=== PATIENT | female | born 1950 | race Two or more races ===

== ENCOUNTER 2022-01-23 23:11 | Emergency (ER) | payer OTHER ==
[~2022-01-23] VITALS: Ht 170.2 cm; Wt 127.0 kg
[2022-01-24 03:23] VITALS: BP 132/85
[2022-01-24] MEDS ORDERED: CEPH-509 PO (08:22)
[2022-01-24] MEDS ORDERED: cefTRIAXone SOD 1,000 MG VL IM ONE (08:30)
[2022-01-24] MEDS ORDERED: LIDOCAINE 1%HCL (LOCAL ANESTH) 10 ML MDV ONE (08:32)
== END 2022-01-24 10:37 | disposition home or self-care (01) ==
LOC: ER 23:11 → EDBD 23:11 → ER 01-24 10:37
DX: S90.01XA Contusion of right ankle, initial encounter (principal); S90.31XA Contusion of right foot, initial encounter; L03.115 Cellulitis of right lower limb; Z89.512 Acquired absence of left leg below knee; Z88.1 Allergy status to other antibiotic agents; W05.0XXA Fall from non-moving wheelchair, initial encounter; Y93.89 Activity, other specified; Y92.89 Other specified places as the place of occurrence of the external cause; Y99.8 Other external cause status
CPT/HCPCS: 36415; 73552; 73590; 73600; 73620; 84484; 93005; 96372; 99285; J0696; J2001